=== PATIENT | male | born 1945 | race Caucasian/White ===

== ENCOUNTER → 2016-10-29 | Outpatient (CLI) | payer MEDICARE, BC ==
[~2016-10-29] MED LIST: ACTOPLUS MET 851 TAB PO; ALLOPURINOL300 MG PO; ASPIRIN E.C. 8181 MG PO; CALCIUM600 M1 PO; COUMADIN4 MG PO; FUROSEMIDE40 MG PO; GLUCOPHAGE850 MG/TAB PO; JANTOVEN1 MG PO; LASIX 40MG TABL40 MG PO; LOFIBRA54 MG PO; LOPRESSOR100 MG PO; MICRO-K 1010 MEQ PO; MICRO-K10 MEQ PO; PRINIVIL10 MG PO; SIMVASTATIN20 MG PO; WARFARIN4 MG PO; ZOCOR 20MG20 MG PO
== END ==
LOC: COL.RAD 10:10
DX: I71.2 Thoracic aortic aneurysm, without rupture (principal)
CPT/HCPCS: Q9967

== ENCOUNTER → 2017-11-12 | Outpatient (CLI) | payer MEDICARE, BC | LOC: COL.RAD 09:34 | DX: Z01.812 Encounter for preprocedural laboratory examination (principal); I71.9 Aortic aneurysm of unspecified site, without rupture; N21.0 Calculus in bladder; N20.0 Calculus of kidney | CPT/HCPCS: Q9967 ==

== ENCOUNTER → 2018-04-19 | Outpatient (CLI) | payer MEDICARE, BC | LOC: COL.VAS 13:07 | DX: I82.513 Chronic embolism and thrombosis of femoral vein, bilateral (principal); I82.532 Chronic embolism and thrombosis of left popliteal vein ==

== ENCOUNTER 2018-05-28 06:08 | Day surgery (SDC) | payer MEDICARE, BC ==
[2018-05-28] VITALS (9 sets, daily range): BP systolic 98–135; BP diastolic 67–85; PULSE 67–97; TEMP 97.3
[~2018-05-28] VITALS: Ht 180.3 cm; Wt 132.7 kg
[~2018-05-28 06:08] MED LIST changes: +GLUCOPHAGE1000 MG PO; -GLUCOPHAGE850 MG/TAB PO; +LIPITOR 40MG TA40 MG PO; -ZOCOR 20MG20 MG PO
[2018-05-28 07:12] LABS: PROTHROMBIN TIME 11.5 SECONDS (9.7-12.8)
[2018-05-28] MEDS ORDERED: LOFIBRA54 MG PO (07:52)
[2018-05-28] MEDS ORDERED: GLUCOTROL 5M5 MG/TAB PO (07:52)
[2018-05-28] MEDS ORDERED: VITAMIN D 1001000 IU PO (07:53)
[2018-05-28] MEDS ORDERED: TRULICITY1.5 MG/0.5 SQ (07:53)
== END 2018-05-28 12:19 | disposition home or self-care (01) ==
LOC: COL.CAR 06:08
PROVIDERS: Radiology Diagnostic Radiology
DX: Z45.2 Encounter for adjustment and management of vascular access device (principal); Z79.01 Long term (current) use of anticoagulants; Z86.718 Personal history of other venous thrombosis and embolism
CPT/HCPCS: C1769; C1880; C1894; J1644; J2250; J3010; J7120; Q9967

== ENCOUNTER 2018-08-10 09:15 | Outpatient (CLI) | payer MEDICARE, BC ==
[~2018-08-10] VITALS: Ht 180.3 cm; Wt 131.0 kg
[2018-08-10] VITALS (7 sets, daily range): BP systolic 125–152; BP diastolic 67–88; PULSE 68–87; TEMP 98.4
[~2018-08-10 09:15] MED LIST changes: +GLUCOTROL 5M5 MG/TAB PO; +TRULICITY1.5 MG/0.5 SQ; +VITAMIN D 1001000 IU PO
[2018-08-10 10:32] LABS: PROTHROMBIN TIME 11.9 SECONDS (9.7-12.8)
--- NOTE | 2018-08-10 10:36 | NUR ---
Initial visit; Patient and his thanked [employer] for offering encouragement and prayer prior to his surgical procedure and keeping him in [employer] prayers.
[2018-08-10] MEDS ORDERED: REQUIP0.25 MG PO (10:49)
--- NOTE | 2018-08-10 13:02 | NUR ---
ALL MEDS GIVEN VIA VERBAL WITH READBACK. SEE MERGE FOR ADMIN TIMES.
--- NOTE | 2018-08-10 15:30 | NUR ---
Discharge instructions given to pt.Pt verbalizes understanding.INT removed,catheter tip intact.Pt escorted out by thisnurse.
== END 2018-08-10 16:40 | disposition home or self-care (01) ==
LOC: COL.VAS 09:15
PROVIDERS: Radiology Diagnostic Radiology
DX: Z45.89 Encounter for adjustment and management of other implanted devices (principal); I82.412 Acute embolism and thrombosis of left femoral vein; I82.432 Acute embolism and thrombosis of left popliteal vein; Z86.718 Personal history of other venous thrombosis and embolism
CPT/HCPCS: J1644; J2250; J3010; J7120; Q9967

== ENCOUNTER → 2018-11-16 | Outpatient (CLI) | payer MEDICARE, BC ==
[~2018-11-16] MED LIST changes: +REQUIP0.25 MG PO
[2018-11-16 11:07] LABS: CREATININE, serum 0.8 (0.66-1.25)
== END ==
LOC: COL.RAD 09:44
PROVIDERS: Internal Medicine
DX: Z01.812 Encounter for preprocedural laboratory examination (principal); I71.2 Thoracic aortic aneurysm, without rupture; R91.8 Other nonspecific abnormal finding of lung field; I70.0 Atherosclerosis of aorta; N20.0 Calculus of kidney; K76.0 Fatty (change of) liver, not elsewhere classified; M43.06 Spondylolysis, lumbar region; I71.6 Thoracoabdominal aortic aneurysm, without rupture
CPT/HCPCS: Q9967

== ENCOUNTER → 2019-11-10 | Outpatient (CLI) | payer MEDICARE, BC | LOC: COL.RAD 09:51 | DX: I71.2 Thoracic aortic aneurysm, without rupture (principal); N20.0 Calculus of kidney | CPT/HCPCS: Q9967 ==

== ENCOUNTER → 2020-11-29 | Outpatient (CLI) | payer MEDICARE, BC | LOC: COL.RAD 10:46 | DX: I10 Essential (primary) hypertension (principal); I77.810 Thoracic aortic ectasia; N20.0 Calculus of kidney; K80.20 Calculus of gallbladder without cholecystitis without obstruction; N40.0 Benign prostatic hyperplasia without lower urinary tract symptoms; M47.816 Spondylosis without myelopathy or radiculopathy, lumbar region; M43.16 Spondylolisthesis, lumbar region | CPT/HCPCS: Q9967 ==

== ENCOUNTER → 2022-03-12 | Outpatient (CLI) | payer MEDICARE, BC | LOC: COL.VAS 08:31 | DX: I82.513 Chronic embolism and thrombosis of femoral vein, bilateral (principal); I82.5 Chronic embolism and thrombosis of deep veins of lower extremity; I82.539 Chronic embolism and thrombosis of unspecified popliteal vein ==

== ENCOUNTER 2022-05-05 10:22 | Day surgery (SDC) | payer MEDICARE, BC ==
[2022-05-05] VITALS (9 sets, daily range): BP systolic 125–150; BP diastolic 58–90; PULSE 62–78; TEMP 97.9
[~2022-05-05] VITALS: Ht 180.3 cm; Wt 134.9 kg
[~2022-05-05 10:22] MED LIST changes: -GLUCOTROL 5M5 MG/TAB PO; +GLUCOTROL10 MG PO; +LANTUS100 U/ML SQ; +OZEMPIC1 MG/0.71 SQ; +VITAMIN D31000 I1 PO
--- NOTE | 2022-05-05 13:47 | NUR ---
Pt and updated about delay in procedure time and express understanding. He is assisted up to restroom. New warm blankets provided. Call light in reach. at bedside.
--- NOTE | 2022-05-05 14:10 | NUR ---
SEE MERGE FOR ALL MEDICATION ADMINISTRATION TIMES/DOSAGES AND INTRA/POST PROCEDURE SEDATION ASSESSMENTS. PRE PROCEDURE ASSESSMENT COMPLETED IN [facility].
--- NOTE | 2022-05-05 14:53 | NUR ---
Pt provided chair to sit up in for comfort while waiting procedure. He denies further needs. remains at bedside.
--- NOTE | 2022-05-05 17:02 | NUR ---
Crackers and soda provided to pt. Meal tray ordered for pt and . Dressing to rt groin puncture site is clean, dry and intact. Pt free of complaints. Call light in reach.
--- NOTE | 2022-05-05 19:23 | NUR ---
Pt remained flat until 1734, R groin IVC site remained CDI and WNL without s/s of bleeding or swelling to site or surrounding skin; both pt and verbalized comfort in discharging home; VSS prior to discharge, reviewed and signed discharge instructions and education and both pt and had no questions/concerns; reiterated to both to continue to hold medications like Coumadin prior to L TKA tomorrow, 05/06, as instructed by [facility]; also recommended pt have nursing staff check R groin IVC site pre/postop tomorrow. PIV to LFA discontinued; wheeled to POV with , discharge time of 1899.
== END 2022-05-05 19:00 | disposition home or self-care (01) ==
LOC: COL.CAR 10:22
DX: Z86.718 Personal history of other venous thrombosis and embolism (principal); Z79.01 Long term (current) use of anticoagulants
CPT/HCPCS: J1644; J7120; Q9967

== ENCOUNTER 2023-09-30 12:53 | Emergency (ER) | payer MEDICARE, BC ==
[~2023-09-30] VITALS: Ht 177.8 cm; Wt 127.3 kg
[2023-09-30 13:02] VITALS: TEMP 97.2
[2023-09-30] MEDS ORDERED: Morphine 4 MG/ML VIAL IV ONE (13:15)
[2023-09-30] MEDS ORDERED: Ondansetron 4 MG/2 ML VIAL IV ONE (13:15)
[2023-09-30] MEDS ORDERED: LR 1,000 ML IV ONE (13:15)
[2023-09-30 13:21] LABS: BASO # 0.1 K/mm3 (0.0-0.2); BASO % 0.6 % (0.0-2.0); EOS # 0.2 K/mm3 (0.0-0.7); EOS % 2.8 % (0.0-4.0); GRAN # 5.5 K/mm3 (1.4-6.5); GRAN % 63.5 % (42.2-75.2); HEMATOCRIT 44.8 % (42.0-52.0); HEMOGLOBIN 15.7 g/dl (13.5-18.0); LYMPH # 1.8 K/mm3 (1.2-3.4); LYMPH % 20.9 % (20.0-51.0); MEAN CELL VOLUME 91 fl (80.0-100.0); MEAN CORPUSCULAR HEMOGLOBIN 32 pg (27-31); MEAN CORPUSCULAR HGB CONC 35 g/dl (33.0-37.0); MEAN PLATELET VOLUME 9.1 fl (7.4-10.4); MONO % 11.6 % (1.7-9.3); PLATELET COUNT 280 K/mm3 (130-400); RED BLOOD COUNT 4.92 M/mm3 (4.20-5.60); REDCELL DISTRIBUTION WIDTH-CV 14.2 % (11.5-14.5)
[2023-09-30 13:39] LABS: ALBUMIN 3.5 g/dL (3.4-4.8); BILIRUBIN,TOTAL 0.8 mg/dL (0.2-1.2); CREATININE, serum 1.3 mg/dL (0.72-1.25); POTASSIUM 4.2 mEq/L (3.5-4.5); TOTAL PROTEIN 7.2 g/dl (6.2-8.1)
[2023-09-30] MEDS ORDERED: Insulin Regular Human (NovoLIN R/HumuLIN R) IV ONE (14:45)
[2023-09-30 16:31] LABS: INR 7.4 (0.8-3.0)
[2023-09-30 16:32] LABS: CALCIUM 9.5 mg/dL (8.4-10.2); CREATININE, serum 1.11 mg/dL (0.72-1.25); POTASSIUM 4.2 mEq/L (3.5-4.5); PROTHROMBIN TIME 76.9 SECONDS (9.7-12.8)
[2023-09-30 16:46] LABS: COLLECTION METHOD CLEAN CATCH
[2023-09-30 16:55] LABS: PH 5.5 (5.0-8.5); URINE APPEARANCE CLEAR (CLEAR/HAZY); URINE BLOOD 3+ (NEGATIVE); URINE COLOR YELLOW (YELLOW); URINE GLUCOSE NEGATIVE (NEGATIVE); URINE KETONE NEGATIVE (NEGATIVE); URINE NITRATE NEGATIVE (NEGATIVE); URINE PROTEIN(semi-quant) TRACE (NEGATIVE); URINE UROBILINOGEN 0.2 E.U/dL (0.2-1.0)
[2023-09-30] MEDS ORDERED: ZOFRAN ODT4 MG PO (17:25)
[2023-09-30 17:37] VITALS: BP 131/86; PULSE 70
== END 2023-09-30 17:37 | disposition home or self-care (01) ==
LOC: COL.ER 12:53
PROVIDERS: Emergency Medicine
DX: R11.2 Nausea with vomiting, unspecified (principal); R19.7 Diarrhea, unspecified; I82.409 Acute embolism and thrombosis of unspecified deep veins of unspecified lower extremity; E11.9 Type 2 diabetes mellitus without complications; Z79.01 Long term (current) use of anticoagulants
CPT/HCPCS: J1815; J2270; J2405; J7120